=== PATIENT | female | born 1970 ===

== ENCOUNTER → 2021-07-10 | Outpatient (CLI) | payer SELFPAY ==
[2021-07-18 10:10] LABS: HSV-1 DNA Negative (Negative); HSV-2 DNA Negative (Negative)
== END | disposition home or self-care (01) ==
LOC: LAB SHORT 15:10
PROVIDERS: Physician Assistant Medical
DX: L08.9 Local infection of the skin and subcutaneous tissue, unspecified (principal)
CPT/HCPCS: 87529; 87798